=== PATIENT | female | born 1975 | race Caucasian/White ===

== ENCOUNTER 2018-05-12 02:09 | Emergency (ER) | payer OTHER ==
--- NOTE | 2018-05-12 02:40 | PDOC ---
Attending Attestation - Resident Resident Name: Santos Barbosa - HPI HPI: 05/15/18 09:14 Pt presents to the ED complaining of a two week history of non productive cough , worse over the past two weeks. Denies chest pain or shortness of breath, denies fever. Denies sore throat or nasal congestion. - Physicial Exam PE: 05/15/18 09:16 agree with resident exam. Patient is well appearing and in no acute distress. Lungs are clear. - Medical Decision Making 05/15/18 09:16 Pt presents to the ED complaining of non productive cough, worse over the past two days. Well appearing in the ED, lungs are clear. Symptoms most consistent with viral URI. will discharge home with follow up with her PMD.
[2018-05-12 02:42] VITALS: BP 132/66; PULSE 67; TEMP 97.7; BMI 22.3
--- NOTE | 2018-05-12 03:01 | PDOC ---
History of Present Illness - General Chief Complaint: Cold Symptoms Stated Complaint: COUGH Time Seen by Provider: 05/12/18 02:38 History Source: Patient Exam Limitations: No Limitations - History of Present Illness Initial Comments: 05/12/18 03:39 42F with no pmh presents to the ED for dry cough for the past 2 weeks. Last week had bad muscular pain which have now resolved. Sleeps with son who has similar symptoms. Didn't take any medication. Past History - Past Medical History Allergies/Adverse Reactions: Allergies Allergy/AdvReac Type Severity Reaction Status Date / Time No Known Allergies Allergy Verified 05/12/18 02:41 Home Medications: Ambulatory Orders Benzonatate [Tessalon Pearls -] 100 mg PO TID #90 capsule 05/12/18 - Suicide/Smoking/Psychosocial Hx Smoking History: Never smoked Have you smoked in the past 12 months: No Information on smoking cessation initiated: No Hx Alcohol Use: No Drug/Substance Use Hx: No Review of Systems - Review of Systems Able to Perform ROS?: Yes Is the patient limited [place] proficient: No Constitutional: No: Symptoms Reported HEENTM: No: Symptoms Reported Respiratory: Yes: Cough Cardiac (ROS): No: Symptoms Reported ABD/GI: No: Symptoms Reported : No: Symptoms Reported Musculoskeletal: No: Symptoms Reported Integumentary: No: Symptoms Reported Neurological: No: Symptoms reported All Other Systems: Reviewed and Negative *Physical Exam - Vital Signs Last Vital Signs Temp Pulse Resp BP Pulse Ox 97.7 F 67 18 132/66 98 05/12/18 02:10 05/12/18 02:10 05/12/18 02:10 05/12/18 02:10 05/12/18 02:10 - Physical Exam General Appearance: Yes: Nourished, Appropriately Dressed, Apparent Distress HEENT: positive: EOMI, MICHELLE, Normal ENT Inspection. negative: Pharyngeal Erythema, Tonsillar Exudate, Tonsillar Erythema, Hearing Grossly Normal, TM Bulging, TM Dull, TM Erythema Respiratory/Chest: positive: Lungs Clear, Normal Breath Sounds. negative: Chest Tender, Respiratory Distress Cardiovascular: positive: Regular Rhythm, Regular Rate, S1, S2 Gastrointestinal/Abdominal: positive: Normal Bowel Sounds, Flat, Soft. negative : Tender Musculoskeletal: positive: Normal Inspection. negative: CVA Tenderness Extremity: positive: Normal Capillary Refill, Normal Inspection, Normal Range of Motion Integumentary: positive: Normal Color, Dry, Warm Neurologic: positive: Fully Oriented, Alert, Normal Mood/Affect, Normal Response , Motor Strength 5/5 Medical Decision Making - Medical Decision Making 05/12/18 03:49 This is likely viral URi. Will treat with tessalon pearls Rx. *DC/Admit/Observation/Transfer Diagnosis at time of Disposition: Viral URI with cough - Discharge Dispostion Disposition: HOME Condition at time of disposition: Fair Decision to Admit order: No - Prescriptions Prescriptions: Benzonatate [Tessalon Pearls -] 100 mg PO TID #90 capsule - Referrals Referrals: Umesh Hollis [Primary Care Provider] - - Patient Instructions Additional Instructions: Follow up with your primary care provider. Come back to the ER for any new, worsening or concerning symptoms. - Post Discharge Activity Forms/Work/School Notes: Back to Work
[2018-05-12 03:49] LABS: THROAT:GRP A STREP ANTIGEN Negative
== END 2018-05-12 04:47 | disposition home or self-care (01) ==
LOC: JER 02:09
DX: J06.9 Acute upper respiratory infection, unspecified (principal); B97.89 Other viral agents as the cause of diseases classified elsewhere
CPT/HCPCS: 87070; 87880; 99282-25